=== PATIENT | female | born 1955 | race Caucasian/White ===

== ENCOUNTER → 2019-01-05 | Outpatient (CLI) | payer BC ==
[~2019-01-05] MED LIST: BIOTIN; EZET10TA18 PO; LEVO100T5 PO; MULT-516 PO; VITAMIN B12; VITAMIN C; VITAMIN D3
[2019-01-05 13:08] LABS: BASOPHILS # (AUTO) 0.03 x10^3/uL (0-0.1); BASOPHILS % (AUTO) 0 % (0-1); EOSINOPHILS # (AUTO) 0.05 x10^3/uL (0-0.4); EOSINOPHILS % (AUTO) 0 % (1-7); LYMPHOCYTES % (AUTO) 12 % (22-44); MD NO; MEAN CORPUSCULAR HEMOGLOBIN 30.3 pg (27.0-34.8); MEAN CORPUSCULAR HGB CONC 31.8 g/dL (32.4-35.8); MEAN CORPUSCULAR VOLUME 95.4 fL (80-100); MEAN PLATELET VOLUME 8.4 fL (7.4-10.4); MONOCYTES % (AUTO) 7 % (2-9); NEUTROPHILS # (AUTO) 8.61 x10^3/uL (1.8-6.8); NEUTROPHILS % (AUTO) 81 % (42-75); PLATELET COUNT 347 x10^3/uL (130-400); RED BLOOD COUNT 4.82 x10^6/uL (3.82-5.3)
[2019-01-05 13:12] LABS: MICROSCOPIC NOT IND
[2019-01-05 13:22] LABS: CULTURE INDICATED? NO
== END | disposition home or self-care (01) ==
LOC: STAR 11:59
PROVIDERS: ATTEND Obstetrics & Gynecology
DX: Z01.818 Encounter for other preprocedural examination (principal); N84.0 Polyp of corpus uteri; N95.0 Postmenopausal bleeding
CPT/HCPCS: 36415; 81003; 85025; 93005

== ENCOUNTER 2019-01-09 05:14 | Day surgery (SDC) | payer BC ==
[~2019-01-09] VITALS: Ht 165.1 cm; Wt 82.2 kg
[2019-01-09] MEDS ORDERED: LACTATED RINGERS 1,000 ML IV SCH (05:56)
[2019-01-09] MEDS ORDERED: GABAPENTIN 300 MG CAPSULE PO ONE (06:00)
[2019-01-09] MEDS ORDERED: ACETAMINOPHEN 500 MG TABLET PO ONE (06:00)
[2019-01-09] MEDS ORDERED: MIDAZOLAM 1 MG/ML, 2ML ONE (07:03)
[2019-01-09] MEDS ORDERED: FENTANYL PF 250 MCG/5ML ONE (07:03)
[2019-01-09] MEDS ORDERED: CEFAZOLIN 1,000 MG ONE (07:08)
[2019-01-09] MEDS ORDERED: ONDANSETRON 2MG/ML, 2ML ONE (07:08)
[2019-01-09] MEDS ORDERED: PROPOFOL 10 MG/ML, 20ML ONE (07:08)
[2019-01-09] MEDS ORDERED: DEXAMETHASONE 4 MG/ML, 1ML ONE (07:08)
[2019-01-09] MEDS ORDERED: SILVER NITRATE STICK TP ONE (07:20)
[2019-01-09] MEDS ORDERED: OXYcodone 5 MG/5 ML ORAL.SOL UDC PO PRN (07:30)
[2019-01-09] MEDS ORDERED: ONDANSETRON 2MG/ML, 2ML IV PRN (07:30)
[2019-01-09] MEDS ORDERED: PROMETHAZINE 25 MG SUPP PR PRN (07:30)
[2019-01-09] MEDS ORDERED: FENTANYL PF 100 MCG/2ML IV PRN (07:30)
[2019-01-09] MEDS ORDERED: MEPERIDINE/PF 25MG/0.5ML IVPush PRN (07:30)
[2019-01-09] MEDS ORDERED: ONDANSETRON ODT 8 MG PO PRN (07:30)
[2019-01-09] MEDS ORDERED: hydrALAzine 20 MG/ML, 1ML IV PRN (07:30)
[2019-01-09] MEDS ORDERED: MORPHINE SULFATE 4 MG/ML, 1ML IVPush PRN (07:30)
[2019-01-09] MEDS ORDERED: PROMETHAZINE 25 MG/ML, 1ML IV PRN (07:30)
[2019-01-09] MEDS ORDERED: HALOPERIDOL 5 MG/ML IV PRN (07:30)
[2019-01-09] MEDS ORDERED: HYDROmorphone 2 MG/ML, 1ML IVPush PRN (07:30)
[2019-01-09] MEDS ORDERED: LABETALOL 5MG/ML, 20ML IV PRN (07:30)
[2019-01-09] MEDS ORDERED: PROMETHAZINE 12.5 MG SUPP PR PRN (07:30)
[2019-01-09] MEDS ORDERED: PROMETHAZINE 25 MG/ML, 1ML IM PRN ×2 (07:30)
[2019-01-09] MEDS ORDERED: KETOROLAC 30 MG/1 ML ONE (08:28)
== END 2019-01-09 12:50 | disposition home or self-care (01) ==
LOC: OUT 05:14
PROVIDERS: ATTEND Obstetrics & Gynecology
DX: N84.0 Polyp of corpus uteri (principal); N88.8 Other specified noninflammatory disorders of cervix uteri; N72 Inflammatory disease of cervix uteri; I10 Essential (primary) hypertension; E03.9 Hypothyroidism, unspecified; G47.33 Obstructive sleep apnea (adult) (pediatric); Z79.890 Hormone replacement therapy; Z79.899 Other long term (current) drug therapy; Z88.2 Allergy status to sulfonamides; Z88.8 Allergy status to other drugs, medicaments and biological substances; Z98.51 Tubal ligation status; Z98.890 Other specified postprocedural states; Z82.3 Family history of stroke; Z80.0 Family history of malignant neoplasm of digestive organs; Z80.8 Family history of malignant neoplasm of other organs or systems; Z83.3 Family history of diabetes mellitus
CPT/HCPCS: 58558; 88305; J0690; J1100; J1885; J2250; J2405; J2704; J3010; J7120